=== PATIENT | female | born 1950 | race Caucasian/White ===

== ENCOUNTER → 2017-11-07 | Outpatient (CLI) | payer MEDICARE, OTHER ==
[~2017-11-07] MED LIST: ALEN70TA2 PO; AML5T; AMLO10TA2 PO; ASCO-262 PO; CALC-823 PO; CHOL100048 PO; ENAL20TA PO; ENLP10T; FOSAMAX 35 MG; LEVO500T2 PO; MULT-974 PO; OMEP20TA33 PO; PRD10T PO; VITA-240 PO
--- NOTE | 2017-11-07 15:14 | Diagnostic Imaging Report ---
INDICATION: Fall. Back pain. COMPARISON: None FINDINGS: Frontal and lateral views of the lumbar spine were obtained. Alignment and vertebral heights are maintained. There is no fracture or destructive process. Mild multilevel degenerative disease is noted in the lumbar spine. Limited views of the abdomen demonstrate nonobstructive bowel gas pattern. There is calcified aortic and arterial atherosclerosis. IMPRESSION: 1. No acute fracture or dislocation of the lumbar spine. 2. Mild multilevel degenerative changes. Dictated by: Dictated on workstation # [id number]
== END ==
LOC: RAD 13:51
PROVIDERS: ATTEND Nurse Practitioner Family
DX: M47.816 Spondylosis without myelopathy or radiculopathy, lumbar region (principal); W19.XXXA Unspecified fall, initial encounter
CPT/HCPCS: 72100

== ENCOUNTER 2018-09-10 12:49 | Observation (INO) | payer MEDICARE, OTHER ==
[~2018-09-10] VITALS: Ht 152.4 cm; Wt 73.5 kg
[~2018-09-10 12:49] MED LIST changes: -AMLO10TA2 PO; +AMLO10TA6 PO
--- OUTSIDE RECORDS SUMMARY | 2018-09-10 13:56 | XMS REPORT | Continuity of Care Document ---
Author Author [facility] Organization [facility] Address Unknown Phone Unavailable Allergies Active Description Code Type Severity Reaction Onset Reported/Identified Relationship to Patient Clinical Status Yes codeine [id number] Drug Allergy Unknown HAS TAKEN LORTA 08/16/2008 Medications There is no data. Problems Date Dx Coded Attending Type Code Diagnosis Diagnosed By 07/14/2012 Ot 174.9 07/14/2012 Ot 733.00 07/14/2012 Ot V58.69 11/04/2012 Ot 174.9 11/04/2012 Ot 427.9 11/04/2012 Ot 733.00 11/04/2012 Ot V58.69 11/04/2013 RJ RIOS N Ot 174.9 11/04/2013 RJ RIOS Ot 427.9 11/04/2013 RJ RIOS N Ot 733.00 11/04/2013 RJ RIOS Ot V58.69 08/17/2015 Ot 724.79 08/17/2015 Ot 305.1 08/17/2015 Ot 401.9 08/17/2015 Ot 733.00 08/17/2015 Ot V10.3 08/17/2015 Ot V58.69 08/17/2015 Ot V67.1 08/17/2015 Ot V67.2 08/17/2015 Ot 174.9 08/17/2015 Ot 733.00 08/17/2015 Ot V49.81 08/17/2015 Ot V82.81 08/17/2015 Ot 786.50 08/17/2015 Ot 174.9 08/17/2015 Ot 786.2 08/17/2015 Ot 786.50 08/17/2015 ABDULKADIR DODD MD Ot 724.1 08/17/2015 ABDULKADIR DODD MD Ot 715.34 08/17/2015 EVER JASSO UNIVERSITY TUTOR Ot 733.00 08/17/2015 EVER JASSO UNIVERSITY TUTOR Ot V10.3 08/17/2015 EVER JASSO UNIVERSITY TUTOR Ot V58.69 08/17/2015 EVER JASSO UNIVERSITY TUTOR Ot V67.1 08/17/2015 EVER JASSO UNIVERSITY TUTOR Ot V67.2 09/18/2015 Ot 724.79 09/18/2015 Ot 305.1 09/18/2015 Ot 401.9 09/18/2015 Ot 733.00 09/18/2015 Ot V10.3 09/18/2015 Ot V58.69 09/18/2015 Ot V67.1 09/18/2015 Ot V67.2 09/18/2015 Ot 174.9 09/18/2015 Ot 733.00 09/18/2015 Ot V49.81 09/18/2015 Ot V82.81 09/18/2015 Ot 786.50 09/18/2015 Ot 174.9 09/18/2015 Ot 786.2 09/18/2015 Ot 786.50 09/18/2015 OSMAN BRADEN, ABDULKADIR R Ot 724.1 09/18/2015 ABDULKADIR DODD MD R Ot 715.34 09/18/2015 EVER JASSO UNIVERSITY TUTOR Ot 733.00 09/18/2015 JASSOEVER Yoo UNIVERSITY TUTOR Ot V10.3 09/18/2015 JASSO EVER Yoo UNIVERSITY TUTOR Ot V58.69 09/18/2015 EVER JASSO UNIVERSITY TUTOR Ot V67.1 09/18/2015 JASSOEVER Yoo UNIVERSITY TUTOR Ot V67.2 09/19/2015 Ot 724.79 09/19/2015 Ot 305.1 09/19/2015 Ot 401.9 09/19/2015 Ot 733.00 09/19/2015 Ot V10.3 09/19/2015 Ot V58.69 09/19/2015 Ot V67.1 09/19/2015 Ot V67.2 09/19/2015 Ot 174.9 09/19/2015 Ot 733.00 09/19/2015 Ot V49.81 09/19/2015 Ot V82.81 09/19/2015 Ot 786.50 09/19/2015 Ot 174.9 09/19/2015 Ot 786.2 09/19/2015 Ot 786.50 09/19/2015 OSMAN BRADEN, ABDULKADIR R Ot 724.1 09/19/2015 OSMAN BRADEN, ABDULKADIR R Ot 715.34 09/19/2015 EVER JASSO UNIVERSITY TUTOR Ot 733.00 09/19/2015 EVER JASSO UNIVERSITY TUTOR Ot V10.3 09/19/2015 EVER JASSO UNIVERSITY TUTOR Ot V58.69 09/19/2015 EVER JASSO UNIVERSITY TUTOR Ot V67.1 09/19/2015 EVER JASSO UNIVERSITY TUTOR Ot V67.2 09/19/2015 GABRIEL, BOBAN N Ot M81.0 09/19/2015 GABRIEL, BOBAN N Ot Z08 09/19/2015 GABRIEL, BOBAN N Ot Z79.899 09/19/2015 GABRIEL, BOBAN N Ot Z85.038 09/19/2015 GABRIEL, BOBAN N Ot Z92.21 09/19/2015 GABRIEL, BOBAN N Ot Z92.3 09/19/2015 GABRIEL, BOBAN N Ot M81.0 09/19/2015 GABRIEL, BOBAN N Ot Z08 09/19/2015 GABRIEL, BOBAN N Ot Z79.899 09/19/2015 GABRIEL, BOBAN N Ot Z85.038 09/19/2015 GABRIEL, BOBAN N Ot Z92.21 09/19/2015 GABRIEL, BOBAN N Ot Z92.3 09/21/2015 OSMAN BRADEN, ABDULKADIR R Ot E83.42 09/21/2015 OSMAN BRADEN, ABDULKADIR R Ot E87.6 09/21/2015 OSMAN BRADEN, ABDULKADIR R Ot F17.210 09/21/2015 OSMAN BRADEN, ABDULKADIR R Ot I10 09/21/2015 OSMAN BRADEN, ABDULKADIR R Ot J18.9 09/21/2015 OSMAN BRADEN, ABDULKADIR R Ot J44.9 09/21/2015 OSMAN BRADEN, ABDULKADIR R Ot J96.00 09/21/2015 OSMAN BRADEN, ABDULKADIR R Ot Z85.3 09/21/2015 OSAMN BRADEN, ABDULKADIR R Ot Z92.21 09/21/2015 OSMAN BRADEN, ABDULKADIR R Ot Z92.3 09/21/2015 OSMAN BRADEN, ABDULKADIR R Ot E83.42 09/21/2015 OSMAN BRADEN, ABDULKADIR R Ot E87.6 09/21/2015 OSMAN BRADEN, ABDULKADIR R Ot F17.210 09/21/2015 OSMAN BRADEN, ABDULKADIR R Ot I10 09/21/2015 OSMAN BRADEN, ABDULKADIR R Ot J18.9 09/21/2015 OSMAN BRADEN, ABDULKADIR R Ot J44.9 09/21/2015 OSMAN BRADEN, ABDULKADIR R Ot J96.00 09/21/2015 OSMAN BRADEN, ABDULKADIR R Ot Z85.3 09/21/2015 OSMAN BRADEN, ABDULKADIR R Ot Z92.21 09/21/2015 OSMAN BRADEN, ABDULKADIR R Ot Z92.3 09/22/2015 OSMAN BRADEN, ABDULKADIR R Ot E83.42 09/22/2015 OSMAN BRADEN, ABDULKADIR R Ot E87.6 09/22/2015 OSMAN BRADEN, ABDULKADIR R Ot F17.210 09/22/2015 OSMAN BRADEN, ABDULKADIR R Ot I10 09/22/2015 OSMAN BRADEN, ABDULKADIR R Ot J18.9 09/22/2015 OSMAN BRADEN, ABDULKADIR R Ot J44.9 09/22/2015 OSMAN BRADEN, ABDULKADIR R Ot J96.00 09/22/2015 OSMAN BRADEN, ABDULKADIR R Ot Z85.3 09/22/2015 OSMAN BRADEN, ABDULKADIR R Ot Z92.21 09/22/2015 OSMAN BRADEN, ABDULKADIR R Ot Z92.3 09/23/2015 OSAMN BRADEN, ABDULKADIR R Ot E83.42 09/23/2015 SOMAN BRADEN, ABDULKADIR R Ot E87.6 09/23/2015 OSMAN BRADEN, ABDULKADIR R Ot F17.210 09/23/2015 OSMAN BRADEN, ABDULKADIR R Ot I10 09/23/2015 OSMAN BRADEN, ABDULKADIR R Ot J18.9 09/23/2015 OSMAN BRADEN, ABDULKADIR R Ot J44.9 09/23/2015 OSMAN BRADEN, ABDULKADIR R Ot J96.00 09/23/2015 OSMAN BRADEN, ABDULKADIR R Ot Z85.3 09/23/2015 OSMAN BRADEN, ABDULKADIR R Ot Z92.21 09/23/2015 OSMAN BRADEN, ABDULKADIR R Ot Z92.3 09/24/2015 OSMAN BRADEN, ABDULKADIR R Ot E83.42 09/24/2015 OSMAN BRADEN, ABDULKADIR R Ot E87.6 09/24/2015 OSMAN BRADEN, ABDULKADIR R Ot F17.210 09/24/2015 OSMAN BRADEN, ABDULKADIR R Ot I10 09/24/2015 OSMAN BRADEN, ABDULKADIR R Ot J18.9 09/24/2015 OSMAN BRADEN, ABDULKADIR R Ot J44.9 09/24/2015 OSMAN BRADEN, ABDULKADIR R Ot J96.00 09/24/2015 OSMAN BRADEN, ABDULKADIR R Ot Z85.3 09/24/2015 OSMAN BRADEN, ABDULKADIR R Ot Z92.21 09/24/2015 OSMAN BRADEN, ABDULKADIR R Ot Z92.3 09/25/2015 OSMAN BRADEN, ABDULKADIR R Ot E83.42 09/25/2015 OSMAN BRADEN, ABDULKADIR R Ot E87.6 09/25/2015 OSMAN BRADEN, ABDULKADIR R Ot F17.210 09/25/2015 OSMAN BRADEN, ABDULKADIR R Ot I10 09/25/2015 OSMAN BRADEN, ABDULKADIR R Ot J18.9 09/25/2015 OSMAN BRADEN, ABDULKADIR R Ot J44.9 09/25/2015 OSMAN BRADEN, ABDULKADIR R Ot J96.00 09/25/2015 OSMAN BRADEN, ABDULKADIR R Ot Z85.3 09/25/2015 OSMAN BRADEN, ABDULKADIR R Ot Z92.21 09/25/2015 OSMAN BRADEN, ABDULKADIR R Ot Z92.3 09/26/2015 OSMAN BRADEN, ABDULKADIR R Ot E83.42 09/26/2015 OSMAN BRADEN, ABDULKADIR R Ot E87.6 09/26/2015 OSMAN BRADEN, ABDULKADIR R Ot F17.210 09/26/2015 OSMAN BRADEN, ABDULKADIR R Ot I10 09/26/2015 OSMAN BRADEN, ABDULKADIR R Ot J18.9 09/26/2015 OSMAN BRADEN, ABDULKADIR R Ot J44.9 09/26/2015 OSMAN BRADEN, ABDULKADIR R Ot J96.00 09/26/2015 OSMAN BRADEN, ABDULKADIR R Ot Z85.3 09/26/2015 OSMAN BRADEN, ABDULKADIR R Ot Z92.21 09/26/2015 OSMAN BRADEN, ABDULKADIR R Ot Z92.3 09/27/2015 OSMAN BRADEN, ABDULKADIR R Ot E83.42 09/27/2015 OSMAN BRADEN, ABDULKADIR R Ot E87.6 09/27/2015 OSMAN BRADEN, ABDULKADIR R Ot F17.210 09/27/2015 OSMAN BRADEN, ABDULKADIR R Ot I10 09/27/2015 OSMAN BRADEN, ABDULKADIR R Ot J18.9 09/27/2015 OSMAN BRADEN, ABDULKADIR R Ot J44.9 09/27/2015 OSMAN BRADEN, ABDULKADIR R Ot J96.00 09/27/2015 OSMAN BRADEN, ABDULKADIR R Ot Z85.3 09/27/2015 OSMAN BRADEN, ABDULKADIR R Ot Z92.21 09/27/2015 OSMAN BRADEN, ABDULKADIR R Ot Z92.3 09/27/2015 OSMAN BRADEN, ABDULKADIR R Ot E83.42 09/27/2015 OSMAN BRADEN, ABDULKADIR R Ot E87.6 09/27/2015 OSMAN BRADEN, ABDULKADIR R Ot F17.210 09/27/2015 OSMAN BRADEN, ABDULKADIR R Ot I10 09/27/2015 OSMAN BRADEN, ABDULKADIR R Ot J18.9 09/27/2015 OSMAN BRADEN, ABDULKADIR R Ot J44.1 09/27/2015 OSMAN BRADEN, ABDULKADIR R Ot J44.9 09/27/2015 OSMAN BRADEN, ABDULKADIR R Ot J96.00 09/27/2015 OSMAN BRADEN, ABDULKADIR R Ot K21.9 09/27/2015 OSMAN BRADEN, ABDULKADIR R Ot Z85.3 09/27/2015 OSMAN BRADEN, ABDULKADIR R Ot Z92.21 09/27/2015 OSMAN BRADEN, ABDULKADIR R Ot Z92.3 10/24/2015 Ot 724.79 10/24/2015 Ot 305.1 10/24/2015 Ot 401.9 10/24/2015 Ot 733.00 10/24/2015 Ot V10.3 10/24/2015 Ot V58.69 10/24/2015 Ot V67.1 10/24/2015 Ot V67.2 10/24/2015 Ot 174.9 10/24/2015 Ot 733.00 10/24/2015 Ot V49.81 10/24/2015 Ot V82.81 10/24/2015 Ot 786.50 10/24/2015 Ot 174.9 10/24/2015 Ot 786.2 10/24/2015 Ot 786.50 10/24/2015 OSMAN BRADEN, ABDULKADIR R Ot 724.1 10/24/2015 OSMAN BRADEN, ABDULKADIR R Ot 715.34 10/24/2015 JASSO, EVER S UNIVERSITY TUTOR Ot 733.00 10/24/2015 ROMERO EVER S UNIVERSITY TUTOR Ot V10.3 10/24/2015 ROMERO GENEVAAH S UNIVERSITY TUTOR Ot V58.69 10/24/2015 JASSO GENEVAAH S UNIVERSITY TUTOR Ot V67.1 10/24/2015 JASSO, GENEVAAH S UNIVERSITY TUTOR Ot V67.2 10/24/2015 JULIO CESAR RIOSAN N Ot M81.0 10/24/2015 GABRIEL, BOBAN N Ot Z08 10/24/2015 GABRIEL, BOBAN N Ot Z79.899 10/24/2015 GABRIEL, BOBAN N Ot Z85.038 10/24/2015 GABRIEL, BOBAN N Ot Z92.21 10/24/2015 GABRIEL, BOBAN N Ot Z92.3 11/09/2015 TAMMIE VINCENT JR. JAVA DEVELOPER Ot R05 11/09/2015 TAMMIE VINCENT E JR. JAVA DEVELOPER Ot R06.00 11/09/2015 TAMMIE VINCENT JR. JAVA DEVELOPER Ot R09.02 11/09/2015 TAMMIE VINCENT E JR. JAVA DEVELOPER Ot R05 11/09/2015 TAMMIE VINCENT E JR. JAVA DEVELOPER Ot R06.00 11/09/2015 TAMMIE VINCENT JR. JAVA DEVELOPER Ot R09.02 11/09/2015 OSMAN BRADEN, ABDULKADIR R Ot J18.9 11/09/2015 OSMAN BRADEN, ABDULKADIR R Ot R09.89 12/26/2015 GABRIEL, JULIO CESARAN N Ot M81.0 12/26/2015 GABRIEL, BOBAN N Ot Z08 12/26/2015 GABRIEL, BOBAN N Ot Z79.899 12/26/2015 RJ RIOS N Ot Z85.038 12/26/2015 RJ RIOS N Ot Z92.21 12/26/2015 RJ RIOS N Ot Z92.3 12/26/2015 OSMAN BRADEN, ABDULKADIR R Ot J18.9 12/26/2015 OSMAN BRADEN, ABDULKADIR R Ot R09.89 12/26/2015 CARLTON TAMMIE E JR. JAVA DEVELOPER Ot R05 12/26/2015 CARLTON TAMMIE E JR. JAVA DEVELOPER Ot R06.00 12/26/2015 CARLTON, TAMMIE E JR. JAVA DEVELOPER Ot R09.02 12/26/2015 CARLTON TAMMIE E JR. JAVA DEVELOPER Ot R05 12/26/2015 CARLTON TAMMIE E JR. JAVA DEVELOPER Ot R06.00 12/26/2015 CARLTON TAMMIE E JR. JAVA DEVELOPER Ot R09.02 02/05/2016 CARLTON TAMMIE E JR. JAVA DEVELOPER Ot R05 02/05/2016 CARLTON TAMMIE E JR. JAVA DEVELOPER Ot R06.00 02/05/2016 CARLTON TAMMIE E JR. JAVA DEVELOPER Ot R09.02 02/07/2016 CARLTON TAMMIE E JR. JAVA DEVELOPER Ot R05 02/07/2016 CARLTON TAMMIE E JR. JAVA DEVELOPER Ot R06.00 02/07/2016 TAMMIE VINCENT JR. JAVA DEVELOPER Ot R09.02 11/08/2017 GILLIAN HOBSON JR. JAVA DEVELOPER Ot M47.816 SPONDYLOSIS W/O MYELOPATHY OR RADICULOPA 11/08/2017 GILLIAN HOBSON R JR. JAVA DEVELOPER Ot W19.XXXA UNSPECIFIED FALL, INITIAL ENCOUNTER 12/02/2017 GILLIAN HOBSON JR. JAVA DEVELOPER Ot M47.816 SPONDYLOSIS W/O MYELOPATHY OR RADICULOPA 12/02/2017 GILLIAN HOBSON JR. JAVA DEVELOPER Ot W19.XXXA UNSPECIFIED FALL, INITIAL ENCOUNTER Procedures There is no data. Results There is no data. Encounters ACCT No. Visit Date/Time Discharge Status Pt. Type Provider Facility Loc./Unit Complaint [id number] 11/07/2017 13:51:00 11/07/2017 23:59:59 CLS Outpatient GILLIAN HOBSON APRN [facility] RAD M54.5 [id number] 11/18/2015 09:01:00 11/18/2015 23:59:59 CLS Outpatient CARLTON, TAMMIE E JR. JAVA DEVELOPER [facility] RAD [id number] 11/09/2015 09:35:00 11/09/2015 23:59:59 CLS Outpatient TAMMIE VINCENT JR. JAVA DEVELOPER [facility] RT [id number] 11/07/2015 13:15:00 11/07/2015 23:59:59 CLS Outpatient TAMMIE VINCENT JR. JAVA DEVELOPER [facility] PULM [id number] 10/24/2015 11:34:00 10/24/2015 23:59:59 CLS Outpatient ABDULKADIR DODD MD [facility] RAD [id number] 09/18/2015 19:16:00 09/27/2015 10:00:00 DIS Inpatient ABDULKADIR DODD MD [facility] 4TH [id number] 08/18/2015 12:52:00 08/18/2015 23:59:59 CLS Outpatient RJ RIOS [facility] ONC [id number] 08/12/2014 14:49:00 08/12/2014 23:59:59 CLS Outpatient EVER JASSO UNIVERSITY TUTOR [facility] ONC [id number] 05/13/2014 14:39:00 05/13/2014 23:59:59 CLS Outpatient ABDULKADIR DODD MD [facility] RAD [id number] 08/06/2013 13:52:00 11/04/2013 00:01:00 DIS Outpatient RJ RIOS [facility] ONC [id number] 03/09/2013 15:14:00 03/09/2013 23:59:59 CLS Outpatient ABDULKADIR DODD MD [facility] RAD [id number] 11/27/2012 12:12:00 Document Registration [id number] 08/15/2012 10:53:00 Document Registration [id number] 08/14/2012 09:26:00 Document Registration [id number] 04/15/2012 09:32:00 Document Registration [id number] 03/24/2012 11:57:00 Document Registration [id number] 07/24/2011 10:16:00 Document Registration [id number] 07/19/2011 09:06:00 Document Registration [id number] 04/11/2011 11:46:00 Document Registration [id number] 01/31/2018 08:49:00 01/31/2018 23:59:00 DIS Outpatient Jay Dodd [id number] 01/09/2017 09:49:00 01/09/2017 23:59:00 DIS Outpatient Jay Dodd
--- NOTE | 2018-09-10 14:05 | Diagnostic Imaging Report ---
PROCEDURE: US left lower extremity venous. TECHNIQUE: Multiple real-time grayscale images were obtained over the left lower extremity in various projections. Additional duplex Doppler and color Doppler images were also obtained. INDICATION: Left lower extremity swelling and redness. The left common femoral vein in the upper portion of the superficial femoral vein are patent and show normal compressibility. There appears to be partially occlusive thrombus in the mid femoral vein with occlusive thrombus in the lower femoral vein and popliteal vein. There appears to be a thrombus in the posterior tibial vein and the calf. No fluid collections are seen. IMPRESSION: Left lower extremity DVT. Dictated by: Dictated on workstation # [id number]
[2018-09-10 14:23] VITALS: BP 151/79
[2018-09-10] MEDS ORDERED: ALBU18HF2 INH (15:08)
[2018-09-10] MEDS ORDERED: FURO40TA4 PO (15:08)
[2018-09-10] MEDS ORDERED: MONT10TA24 PO (15:08)
[2018-09-10] MEDS ORDERED: TRAM1TAB7 PO (15:20)
[2018-09-10 15:28] LABS: BASOPHILS # (AUTO) 0.1 10^3/uL (0.0-0.1); BASOPHILS % (AUTO) 1 % (0-10); EOSINOPHILS # (AUTO) 0.4 10^3/uL (0.0-0.3); EOSINOPHILS % (AUTO) 3 % (0-10); HEMATOCRIT 41 % (35-52); HEMOGLOBIN 13.3 G/DL (11.5-16.0); LYMPHOCYTES # (AUTO) 2.2 X 10^3 (1.0-4.0); LYMPHOCYTES % (AUTO) 17 % (12-44); MEAN CORPUSCULAR HEMOGLOBIN 30 PG (25-34); MEAN CORPUSCULAR HGB CONC 33 G/DL (32-36); MEAN CORPUSCULAR VOLUME 91 FL (80-99); MEAN PLATELET VOLUME 9.3 FL (7.4-10.4); MONOCYTES # (AUTO) 0.9 X 10^3 (0.0-1.0); MONOCYTES % (AUTO) 7 % (0-12); NEUTROPHILS # (AUTO) 9.4 X 10^3 (1.8-7.8); NEUTROPHILS % (AUTO) 73 % (42-75); PLATELET COUNT 310 10^3/uL (130-400); RED BLOOD COUNT 4.45 10^6/uL (4.35-5.85); RED CELL DISTRIBUTION WIDTH 13.1 % (10.0-14.5); WHITE BLOOD COUNT 12.9 10^3/uL (4.3-11.0)
[2018-09-10 15:40] VITALS: BP 144/64
--- NOTE | 2018-09-10 15:40 | History & Physical-Hospitalist ---
History of Present Illness HPI/Chief Complaint Pt is a 67yoCF with a PMH of COPD, HTN, and remote history of breast cancer who was direct admitted after being found to have occlusive proximal DVTs. She reports her symptoms started on 09/07 after reaching to change a clock and she thought that she pulled something in her leg. Her pain continued to worsen and after walking to the polls to vote yesterday it began throbbing significantly so she walked in to be seen by Dr Dodd where an usg was ordered. She was found to have a partially occlusive thrombus in the mid femoral vein with occlusive thrombus in the lower femoral vein and popliteal vein. Due to extensive nature of her DVT she was admitted for observation for initiating of anticoagulation. She denies any recent surgery, active cancer, travel, hormone use. She is regularly ambulatory. Source: patient, family Date Seen 09/10/18 Time Seen by a Provider: 15:33 Attending Physician Paris Molina MD PCP Emil Dodd MD Referring Physician Date of Admission Sep 10, 2018 at 13:52 Home Medications & Allergies Home Medications Reviewed patient Home Medication Reconciliation performed by pharmacy medication reconciliations data acquisition technician and/or nursing. Patients Allergies have been reviewed. Allergies Allergies Coded Allergies codeine (Verified Allergy, Unknown, HAS TAKEN LORTAB AT HOME, 08/16/08) Past Wubhhob-Qayrug-Eflsuo Hx Past Med/Social Hx: Reviewed Nursing Past Med/Soc Hx Patient Social History Alcohol Use: Denies Use Recreational Drug Use: No Smoking Status: Current Someday Smoker Physical Abuse Screen: No Sexual Abuse: No Recent Foreign Travel: No Contact w/other who traveled: No Recent Hopitalizations: Yes Recent Infectious Disease Expo: No Immunizations Up To Date Date of Pneumonia Vaccine: Sep 18, 2013 Date of Influenza Vaccine: Jul 11, 2018 Seasonal Allergies Seasonal Allergies: Yes Past Medical History Surgeries: Breast (lumpectomy), Gallbladder, Hysterectomy Respiratory: COPD (on 3lpm continuously) Cardiac: Hypertension Reproductive: Yes (HYSTERECTOMY-ENDOMETRIOSIS) Female Reproductive Disorders: Endometriosis Hysterectomy Gastrointestinal: Gall Bladder Disease Musculoskeletal: Osteoporosis, Arthritis, Fractures Cancer: Breast What Type of Treatment Did You: Radiation, Surgical Intervention History of Blood Disorders: No Family History Reviewed Nursing Family Hx Alzheimer's disease G8 SISTER G8 SISTER Completed stroke 19 MOTHER Myocardial infarction 19 FATHER DVT/PE Review of Systems Constitutional: No chills, No fever EENTM: No blurred vision, No double vision, No nose congestion, No throat pain Respiratory: No cough, No dyspnea on exertion, No short of breath Cardiovascular: No chest pain, No edema, No palpitations Gastrointestinal: No abdominal pain, No constipation, No diarrhea, No nausea, No vomiting Genitourinary: No dysuria, No frequency Musculoskeletal: see HPI, muscle pain Skin: No lesions, No rash Psychiatric/Neurological: Denies Headache, Denies Numbness, Denies Tingling Physical Exam Physical Exam Vital Signs Vital Signs - First Documented 09/10/18 09/10/18 09/10/18 14:15 14:23 20:10 Temp 99.1 Pulse 100 Resp 20 B/P (MAP) 151/79 (103) Pulse Ox 97 O2 Delivery Nasal Cannula O2 Flow Rate 2.00 FiO2 28 Capillary Refill : Height, Weight, BMI Height: 5'1" Weight: 159lbs. 10.0oz. 72.164242li; BMI Method:Stated General Appearance: No Apparent Distress, WD/WN HEENT: PERRL/EOMI, Moist Mucous Membranes Neck: Non Tender, Supple Respiratory: Lungs Clear, No Respiratory Distress Cardiovascular: Regular Rate, Rhythm, No Murmur Gastrointestinal: Normal Bowel Sounds, Non Tender, Soft Extremity: Normal Capillary Refill, Non Tender, Other (nonpitting edema of the LLE, 2+ peripheral pulses, normal color, sensation intact) Neurologic/Psychiatric: Alert, Oriented x3, Normal Mood/Affect Skin: Normal Color, Warm/Dry Results Results/Procedures Labs Laboratory Tests 09/11/18 07:10 Patient resulted labs reviewed. Imaging: Reviewed Imaging Report Assessment/Plan Admission Diagnosis LLE DVT Admission Status: Observation Diagnosis/Problems Diagnosis/Problems (1) DVT (deep venous thrombosis) Assessment & Plan: Occlusive DVT of femoral and popliteal vein No known contraindications to anticoagulation Will start on Xarelto Discussed with Dr Santamaria who will see in consultation Qualifiers: DVT location: lower extremity Affected thrombotic vein of extremity: femoral Chronicity: acute Laterality: left Qualified Codes: I82.412 - Acute embolism and thrombosis of left femoral vein (2) Acute deep vein thrombosis (DVT) of left lower extremity Assessment & Plan: Anticoagulation as above Qualifiers: Affected thrombotic vein of extremity: popliteal Qualified Codes: I82.432 - Acute embolism and thrombosis of left popliteal vein (3) COPD (chronic obstructive pulmonary disease) Status: Chronic Assessment & Plan: No signs of acute exacerbation Continue oxygen Follows with Dr Kahn who will see in consult Qualifiers: COPD type: unspecified COPD Qualified Codes: J44.9 - Chronic obstructive pulmonary disease, unspecified PARIS MOLINA MD Sep 10, 2018 15:40
[2018-09-10] MEDS ORDERED: PATIENT MAY USE OWN MEDS, ALL MC SCH (15:45)
[2018-09-10] MEDS ORDERED: NON-FORMULARY MEDICATION 1 EA EA (Tramadol HCl/Acetaminophen (Tramadol-Acetaminophn 37.5-3 PO PRN (15:45)
[2018-09-10] MEDS ORDERED: FUROSEMIDE 40 MG (LASIX) TAB PO SCH (15:45)
[2018-09-10 15:49] LABS: ALANINE AMINOTRANSFERASE 20 U/L (0-55); ALBUMIN 4.3 GM/DL (3.2-4.5); ALKALINE PHOSPHATASE 82 U/L (40-136); BILIRUBIN,TOTAL 0.5 MG/DL (0.1-1.0); BUN/CREATININE RATIO 26; CALCIUM 10.4 MG/DL (8.5-10.1); CARBON DIOXIDE 29 MMOL/L (21-32); CHLORIDE 101 MMOL/L (98-107); CREATININE SERUM 0.74 MG/DL (0.60-1.30); GFR ESTIMATED > 60; GLUCOSE 119 MG/DL (70-105); POTASSIUM 4.4 MMOL/L (3.6-5.0); SODIUM 141 MMOL/L (135-145)
[2018-09-10] MEDS ORDERED: ACETAMINOPHEN 325 MG TABLET PO PRN (16:00)
[2018-09-10] MEDS: RIVAROXABAN 15 MG TABLET (XARELTO) PO SCH (16:14)
[2018-09-10 19:13] VITALS: BP 127/62
[2018-09-10 20:10] VITALS: BP 144/64
[2018-09-10] MEDS ORDERED: RT-ALBUTEROL SULF 2.5 MG/3 ML PRE-MIX VIAL INH PRN (20:30)
[2018-09-10] MEDS ORDERED: MONTELUKAST 10 MG (SINGULAIR) TAB PO SCH ×2 (21:00)
[2018-09-10 23:52] VITALS: BP 121/69
[2018-09-11 04:00] VITALS: BP 124/59
[2018-09-11] MEDS: RIVAROXABAN 15 MG TABLET (XARELTO) PO SCH ×2 (06:20→16:56)
[2018-09-11] MEDS: RT-ALBUTEROL SULF 2.5 MG/3 ML PRE-MIX VIAL INH SCH ×2 (06:51→10:55)
--- NOTE | 2018-09-11 07:15 | Pulmonary Consultation ---
History of Present Illness History of Present Illness Date of Consultation 09/11/18 07:09 Time Seen by Provider: 07:10 Date of Admission History of Present Illness 69yo with hx of COPD, breast cancer admitted after dopplers found an oclusive proximal LE DVT. Symptoms started on 09/07. Pt was admitted to [facility] and placed on Xeralto. PT has strong family hx of DVTs. Denies surgery, current cancer, travel , hormone replacement. I am consulted for pulmonary management. Allergies and Home Medications Allergies Coded Allergies: codeine (Verified Allergy, Unknown, HAS TAKEN LORTAB AT HOME, 08/16/08) Home Medications Albuterol Sulfate 18 Gm Hfa.aer.ad, 2 PUFF INH Q4H PRN for SHORTNESS OF BREATH, (Reported) Amlodipine Besylate 10 Mg Tablet, 10 MG PO DAILY, (Reported) Ascorbate Calcium 500 Mg Tablet, 500 MG PO DAILY, (Reported) Calcium Carbonate 500 Mg Tablet, 500 MG PO BID, (Reported) Cholecalciferol (Vitamin D3) 1,000 Unit Capsule, 1,000 UNIT PO DAILY, (Reported) Enalapril Maleate 20 Mg Tablet, 20 MG PO DAILY, (Reported) Furosemide 40 Mg Tablet, 40 MG PO Q48H, (Reported) Montelukast Sodium 10 Mg Tablet, 10 MG PO HS, (Reported) Multivitamin 1 Each Tablet, 1 TAB PO DAILY, (Reported) Omeprazole Magnesium 20 Mg Tablet.dr, 20 MG PO DAILY, (Reported) Tramadol HCl/Acetaminophen 1 Each Tablet, 1 TAB PO TID PRN for PAIN-MODERATE, ( Reported) Vitamin E (Dl,Tocopheryl Acet) 400 Unit Capsule, 400 UNIT PO DAILY, (Reported) Past Yhfxyxn-Eqxijb-Zaozuj Hx Past Med/Social Hx: Reviewed Nursing Past Med/Soc Hx Patient Social History Alcohol Use: Denies Use Recreational Drug Use: No Smoking Status: Current Someday Smoker Recent Foreign Travel: No Contact w/Someone Who Travel: No Recent Infectious Disease Expo: No Recent Hopitalizations: Yes Immunizations Up To Date Date of Pneumonia Vaccine: Sep 18, 2013 Date of Influenza Vaccine: Jul 11, 2018 Seasonal Allergies Seasonal Allergies: Yes Past Medical History Surgeries: Yes (LEFT BREAST LUMPECTOMY AND AXILLARY LYMPH NODE REMOVAL 2004) Breast (lumpectomy), Gallbladder, Hysterectomy Respiratory: Yes Pneumonia Cardiac: Yes Hypertension Neurological: No Reproductive Disorders: Yes (HYSTERECTOMY-ENDOMETRIOSIS) Female Reproductive Disorders: Endometriosis 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 0.0oz. 73.557745hr; 31.6 BMI Method:Stated Exam Exam Vital Signs Date Time Temp Pulse Resp B/P (MAP) Pulse Ox O2 Delivery O2 Flow Rate FiO2 09/11/18 06:51 95 Nasal Cannula 2.00 09/11/18 04:00 98.6 77 16 124/59 (80) 94 Nasal Cannula 2.00 09/10/18 23:52 98.9 80 20 121/69 (86) 95 Nasal Cannula 2.00 09/10/18 20:25 94 Nasal Cannula 2.00 09/10/18 20:10 68 94 28 09/10/18 20:09 94 Nasal Cannula 2.00 09/10/18 19:13 98.5 96 20 127/62 (83) 93 Nasal Cannula 2.00 09/10/18 15:40 98.4 96 20 144/64 (90) 97 Nasal Cannula 2.00 09/10/18 14:23 99.1 100 20 151/79 (103) 94 Nasal Cannula 2.00 09/10/18 14:15 97 Nasal Cannula 2.00 I & O 09/11/18 06:59 Intake Total 1200 ml Output Total 2025 ml Balance -825 ml Height & Weight Height: 5'0.00" Weight: 162lbs. 0.0oz. 73.997482yl; 31.6 BMI Method:Stated General Appearance: No Apparent Distress, WD/WN HEENT: PERRL/EOMI, Moist Mucous Membranes Neck: Non Tender, Supple Respiratory: Lungs Clear, No Respiratory Distress Cardiovascular: Regular Rate, Rhythm, No Murmur Extremity: Normal Capillary Refill, Non Tender, Other (nonpitting edema of the LLE, 2+ peripheral pulses, normal color, sensation intact) Neurologic/Psychiatric: Alert, Oriented x3, Normal Mood/Affect Skin: Normal Color, Warm/Dry Results Lab Laboratory Tests 09/10/18 15:20 Assessment/Plan Assessment/Plan DVT LLE with strong family hx -Continue Xarelto -Check CTA r/o PE -No recent PE HX of mild COPD ( MARGRET DINH DO Sep 11, 2018 07:15
[2018-09-11 07:27] LABS: BASOPHILS % (AUTO) 0 % (0-10); EOSINOPHILS # (AUTO) 0.4 10^3/uL (0.0-0.3); EOSINOPHILS % (AUTO) 3 % (0-10); HEMATOCRIT 39 % (35-52); HEMOGLOBIN 12.8 G/DL (11.5-16.0); LYMPHOCYTES # (AUTO) 2.3 X 10^3 (1.0-4.0); LYMPHOCYTES % (AUTO) 21 % (12-44); MEAN CORPUSCULAR HEMOGLOBIN 30 PG (25-34); MEAN CORPUSCULAR HGB CONC 33 G/DL (32-36); MEAN CORPUSCULAR VOLUME 91 FL (80-99); MEAN PLATELET VOLUME 9.3 FL (7.4-10.4); MONOCYTES # (AUTO) 0.9 X 10^3 (0.0-1.0); MONOCYTES % (AUTO) 8 % (0-12); NEUTROPHILS # (AUTO) 7.5 X 10^3 (1.8-7.8); NEUTROPHILS % (AUTO) 67 % (42-75); PLATELET COUNT 310 10^3/uL (130-400); RED BLOOD COUNT 4.31 10^6/uL (4.35-5.85); RED CELL DISTRIBUTION WIDTH 13.2 % (10.0-14.5); WHITE BLOOD COUNT 11.1 10^3/uL (4.3-11.0)
[2018-09-11 07:42] LABS: INR 1.8 (0.8-1.4); PROTHROMBIN TIME PATIENT 21.4 SEC (12.2-14.7)
[2018-09-11 07:49] LABS: BUN/CREATININE RATIO 26; CALCIUM 9.8 MG/DL (8.5-10.1); CARBON DIOXIDE 28 MMOL/L (21-32); CHLORIDE 99 MMOL/L (98-107); CREATININE SERUM 0.68 MG/DL (0.60-1.30); GFR ESTIMATED > 60; GLUCOSE 105 MG/DL (70-105); POTASSIUM 3.9 MMOL/L (3.6-5.0); SODIUM 140 MMOL/L (135-145)
[2018-09-11 08:00] VITALS: BP 128/72
[2018-09-11] MEDS ORDERED: NON-FORMULARY MEDICATION 1 EA EA (Amlodipine Besylate 10 MG) PO SCH (09:00)
[2018-09-11] MEDS ORDERED: ENALAPRIL 10 MG (VASOTEC) TAB PO SCH (09:00)
[2018-09-11] MEDS ORDERED: amLODIPine 10 MG (NORVASC) TAB PO SCH ×2 (09:00)
[2018-09-11] MEDS ORDERED: ENALAPRIL 20 MG TAB PO SCH (09:00)
[2018-09-11] MEDS ORDERED: NON-FORMULARY MEDICATION 1 EA EA (Enalapril Maleate 20 MG) PO SCH (09:00)
[2018-09-11 12:00] VITALS: BP 131/59
--- NOTE | 2018-09-11 12:08 | Diagnostic Imaging Report ---
PROCEDURE: US right lower extremity venous. TECHNIQUE: Multiple real-time grayscale images were obtained over the right lower extremity in various projections. Additional duplex Doppler and color Doppler images were also obtained. INDICATION: Calf pain. There are no prior studies available for comparison. There is generally good blood flow and compressibility at all levels of the deep venous system. There is no evidence for a deep venous embolus. IMPRESSION: There is no evidence for deep venous stenosis of the right lower extremity. Dictated by: Dictated on workstation # [id number]
--- NOTE | 2018-09-11 12:13 | Diagnostic Imaging Report ---
PROCEDURE: CT angiography of the chest with contrast. TECHNIQUE: Multiple contiguous axial images were obtained through the chest after uneventful bolus administration of intravenous contrast. 2D reconstructed CTA MIP acquisitions were also performed. INDICATION: Chest pain. FINDINGS: The previous CTA chest exam performed on 09/20/2015 failed to show any sign of a pulmonary embolus. On this exam, however, there does appear to be a small defect within the pulmonary arteries to the right lower lobe (image 86/137, 87/133). This does suggest a small pulmonary embolus. There is no other defect within the pulmonary arteries to indicate a pulmonary embolus. The aorta is not abnormally dilated, and there is no sign of a dissection. The heart size is within normal limits and stable when compared to the prior exam. Coronary artery calcifications are again noted. There are emphysematous changes involving both lungs. In the interval since the prior study, a band of increased density has developed in the right lung base. This is more likely due to chronic atelectasis/scar formation than to pneumonia, but the possibly that there is an element of pneumonia in this region should still be considered. There is no pleural effusion identified. There is no mediastinal or hilar adenopathy. The thyroid gland is generally unremarkable. There is a 1.4 cm rounded soft tissue density in the lateral aspect of the left breast. This was present on the prior exam and has not changed significantly. Consequently, I suspect it is not related to a malignant process. According to our records, however, the patient has not had a mammogram. If the patient has had a recent (one year) mammogram elsewhere, then no further imaging would be necessary. If the patient has not had a recent mammogram, then mammography would be recommended. The bone windows show no evidence for a fracture or for a destructive lesion. The sections through the upper abdomen fail to show any sign of an acute abnormality. As noted on the prior exam, there is fatty metamorphosis of the liver. IMPRESSION: 1. There is a small defect in the pulmonary arteries to the right lower lobe. This would be consistent with a pulmonary embolus. 2. The band of increased density in the right lung base may be due to chronic atelectasis/scar formation alone. The possibility that there is an element of mild pneumonia/atelectasis in this area should be considered. 3. There are emphysematous changes involving both lungs. 4. There is no obvious breast mass. 5. These results were discussed with Dr. Daniel Kahn. Dictated by: Dictated on workstation # [id number]
[2018-09-11] MEDS ORDERED: RIVA1TAB PO (13:18)
--- NOTE | 2018-09-11 13:31 | Discharge Inst-Simple/Standard ---
Discharge Inst-Standard Discharge Medications New, Converted or Re-Newed RX: Transmitted to Pharmacy Patient Instructions/Follow Up Plan of Care/Instructions/FU: Please continue to take your medications as written. Please follow up as scheduled with Dr Dodd and Dr Kahn. Activity as Tolerated: Yes Discharge Diet: No Restrictions Return to The Hospital For: Bleeding, SOB, increasing oxygen requirement, chest pain, if you feel you are getting worse. PARIS PACHECO MD Sep 11, 2018 1:31 pm
--- NOTE | 2018-09-11 13:48 | Discharge Summary-Hospitalist ---
Diagnosis/Chief Complaint Date of Admission Sep 10, 2018 at 1:52 pm Date of Discharge Discharge Date: Sep 11, 2018 Admission Diagnosis LLE DVT Discharge Diagnosis (1) DVT (deep venous thrombosis) Status: Acute Assessment & Plan: Occlusive DVT of femoral and popliteal vein No known contraindications to anticoagulation Cont Xarelto Discussed with Dr Santamaria who will see in consultation (2) Acute deep vein thrombosis (DVT) of left lower extremity Assessment & Plan: Anticoagulation as above (3) COPD (chronic obstructive pulmonary disease) Status: Chronic Assessment & Plan: No signs of acute exacerbation Continue oxygen Follows with Dr Kahn who will see in consult Discharge Summary Procedures/Consulations Dr Kahn- Pullu Santamaria Heme/Onc Discharge Physical Exam Allergies: Coded Allergies: codeine (Verified Allergy, Unknown, HAS TAKEN LORTAB AT HOME, 08/16/08) Vitals & I&Os Vital Signs Date Time Temp Pulse Resp B/P (MAP) Pulse Ox O2 Delivery O2 Flow Rate FiO2 09/11/18 17:15 09/11/18 16:12 97.8 93 16 91 Nasal Cannula 2.00 09/10/18 20:10 28 General Appearance: No Apparent Distress, WD/WN Respiratory: Lungs Clear, No Accessory Muscle Use, No Respiratory Distress Cardiovascular: Regular Rate, Rhythm, No Murmur Neurologic/Psychiatric: Alert, Oriented x3 Hospital Course Pt was admitted due to extensive proximal DVT in the left lower extremity. She was started on Xarelto for anticoagulation and tolerated it well. CTA chest was done which revealed a small pulmonary emboli as well. She was discharged home in stable condition to continue on anticoagulation. Fiven extensive nature of an unprovoked DVT and family history as well hematology was consulted to assistance with likely need for hypercoagulable work up at a later date. She is to follow up with the [facility] in [address] Dodd this week. I called and discussed her stay with Dr Dodd who will attempt to help her with affordability of Xarelto if needed. Labs (last 24 hrs) Patient resulted labs reviewed. Pending Labs Imaging: Reviewed Imaging Report Discussion & Recommendations Discharge Planning: >30 minutes discharge planning Discharge Home Medications: Active Scripts Active Xarelto Starter Pack (Rivaroxaban) 1 Each Tab.ds.pk 1 Each PO UD 15mg by mouth twice daily x 21 days then 20mg by mouth daily Reported Tramadol-Acetaminophn 37.5-325 (Tramadol HCl/Acetaminophen) 1 Each Tablet 1 Tab PO TID PRN Ventolin Hfa (Albuterol Sulfate) 18 Gm Hfa.aer.ad 2 Puff INH Q4H PRN Furosemide 40 Mg Tablet 40 Mg PO Q48H Montelukast Sodium 10 Mg Tablet 10 Mg PO HS Vitamin C (Ascorbate Calcium) 500 Mg Tablet 500 Mg PO DAILY Enalapril Maleate 20 Mg Tablet 20 Mg PO DAILY Amlodipine Besylate 10 Mg Tablet 10 Mg PO DAILY Calcium (Calcium Carbonate) 500 Mg Tablet 500 Mg PO BID Vitamin E (Vitamin E (Dl,Tocopheryl Acet)) 400 Unit Capsule 400 Unit PO DAILY Vitamin D (Cholecalciferol (Vitamin D3)) 1,000 Unit Capsule 1,000 Unit PO DAILY Prilosec Otc (Omeprazole Magnesium) 20 Mg Tablet.dr 20 Mg PO DAILY Multi-Vitamin Daily (Multivitamin) 1 Each Tablet 1 Tab PO DAILY Instructions to patient/family Please see electronic discharge instructions given to patient. Clinical Quality Measures DVT/VTE Risk/Contraindication: Risk Factor Score Per Nursin RFS Level Per Nursing on Admit: 4+=Very High Copy Copies To 1: ABDULKADIR DODD MD Problem Qualifiers (1) DVT (deep venous thrombosis): DVT location: lower extremity Affected thrombotic vein of extremity: femoral Chronicity: acute Laterality: left Qualified Codes: I82.412 - Acute embolism and thrombosis of left femoral vein (2) Acute deep vein thrombosis (DVT) of left lower extremity: Affected thrombotic vein of extremity: popliteal Qualified Codes: I82.432 - Acute embolism and thrombosis of left popliteal vein (3) COPD (chronic obstructive pulmonary disease): COPD type: unspecified COPD Qualified Codes: J44.9 - Chronic obstructive pulmonary disease, unspecified PARIS PACHECO MD Sep 11, 2018 13:48
[2018-09-11 16:12] VITALS: BP 108/67
--- NOTE | 2018-09-11 19:11 | CONSULTATION REPORT ---
DATE OF SERVICE: 09/11/2018 REFERRING PHYSICIAN: Shelli Molina MD. The patient is admitted to room #418. IMPRESSION: 1. A 67-year-old female admitted with left lower extremity deep venous thrombosis which was unprovoked. 2. Currently on anticoagulation with Xarelto. 3. 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 4. Status post radiation therapy to the left breast and hormonal therapy with anastrozole for 1 month, which was stopped by the patient. 5. Tobacco user. RECOMMENDATIONS: 1. Continue anticoagulation with Xarelto as you are doing. 2. I strongly advised the patient to quit tobacco use and offered help. The patient wants to quit by herself as she had quit in the past. 3. The patient has family history of thrombosis with her sister recently diagnosed with DVT and a niece who was diagnosed with CVA while in her teenage years. The patient may need a thrombophilia workup because of the family history and the unprovoked nature of her thrombosis. 4. Because of her history of breast cancer, also need to rule out recurrent disease as a cause for thrombosis. 5. I will see her at the Cancer Center in approximately 3 weeks and discuss about further workup. HISTORY OF PRESENT ILLNESS: The patient is a 67-year-old female who "tweaked" her left knee while trying to change her clock to daylight savings time on Saturday. Saturday morning, she had slight swelling around her left knee, but was normally active. Saturday, she went to vote and had to walk a long distance and her leg was more swollen and painful and she went to her primary physician who sent her to the emergency room for a sonogram, which showed extensive DVT involving the left lower extremity. She was admitted to the hospital for further management. Oncology consultation was obtained for further recommendations. PAST MEDICAL HISTORY: Significant for stage II high-grade infiltrating ductal carcinoma of the left breast and underwent lumpectomy with axillary node dissection followed by adjuvant chemotherapy per NSABP B-38 clinical trial with dose-dense AC regimen x4 followed by Taxol, gemcitabine regimen x4 cycles, completing all treatment in 2004. Following this, she underwent radiation therapy to her left breast and was started on adjuvant hormonal treatment with anastrozole. She took this only for a month due to joint pain and did not want to start any other hormonal agents. She has been on surveillance since then with the last visit in 2014. She has a history of hypertension for more than 35 years and has been off treatment. History of GERD in the past requiring proton pump inhibitor therapy. History of osteoporosis and on treatment with the oral bisphosphonates in the past. PAST SURGICAL HISTORY: Include bilateral carpal tunnel release, TAHBSO in 1979, for a tubal and appendectomy at the same time as her hysterectomy. [place] tooth extraction and left breast cancer requiring lumpectomy and axillary node dissection in early 2004. SOCIAL HISTORY: The patient is and lives near [place], [place]. She has four children, three daughters and a son, who all live close by. Two of her children are biological and two are adopted. She has a 18-29-lyrq-year history of tobacco use and was only smoking three cigarettes a day recently. She has quit in the past, but has restarted on few occasions. No history of alcohol or other recreational drug use. 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 FAMILY HISTORY: Significant for mother who was diagnosed with breast cancer at the age of 51 years. The patient does not know the rest of the maternal side of the family as her mother was adopted. There are no malignancies in the paternal side of the family that the patient knows of. Her sister was diagnosed with a DVT while in her late 70s. A niece was diagnosed with a CVA at the age of 18 years, both of which were unprovoked. No other hematologic problems in the family that the patient knows of. PHYSICAL EXAMINATION: GENERAL: Today showed elderly female, moderately obese, awake and oriented and in no acute distress. VITAL SIGNS: Temperature was 97.8, pulse rate of 93, respirations 16, blood pressure 108/67, with oxygen saturation of 91% on 2 liters of oxygen by nasal cannula. HEENT: Normocephalic, extraocular muscles intact, conjunctivae pink, and oral mucosa moist. NECK: Supple with no JVD. No cervical, supraclavicular or axillary lymphadenopathy palpable. CHEST: Symmetrical. LUNGS: Slightly diminished breath sounds bilaterally without any wheezes or rales. CARDIOVASCULAR: Regular in rate and rhythm without murmurs or gallops. ABDOMEN: Obese, soft, nontender with no hepatosplenomegaly or other masses palpable. EXTREMITIES: Showed edema around the left lower extremity. No cords palpable. Rest of extremities without edema. NEUROLOGIC: Grossly intact without focal motor deficits. LABORATORY DATA: CBC done yesterday at the time of admission showed WBC 12.9, hemoglobin 13.3, platelet count 310,000 with neutrophil count 9.4 and lymphocyte count 2.2. Chemistry panel from yesterday showed normal electrolytes. BUN was 19 and creatinine 0.74 with GFR more than 60 mL/minute. Nonfasting glucose was 119. Measured calcium was 10.4 with an albumin level of 4.3 and corrected calcium 10.2. Liver function studies were within normal limits. Venous Doppler study of the left lower extremity showed partially occlusive thrombus in the mid femoral vein with occlusive thrombus in the lower femoral vein and popliteal vein. There appears to be a thrombus in the posterior tibial vein and the calf. No fluid collection seen. CT angiogram of the chest done today showed a small defect in the pulmonary arteries to the right lower lobe consistent with a pulmonary embolus. Band of increased density in the right lung base either due to chronic atelectasis/scar formation. It could also be due to mild pneumonia, atelectasis. Emphysematous changes involving both lungs. A 1.4 cm rounded soft tissue density in the lateral aspect of left breast which was present on the previous examination and has not changed significantly. Thank you for allowing me to participate in your patient's care. Job ID: [id number] DocumentID: [id number] Dictated Date: 09/11/2018 17:57:52 Hydrochloric Acid Operator Date: 09/11/2018 19:10:44 Dictated By: RJ RIOS MD
[2018-09-12] MEDS ORDERED: FUROSEMIDE 40 MG (LASIX) TAB PO SCH (15:00)
[2018-10-02] MEDS ORDERED: RIVAROXABAN 20 MG TABLET (XARELTO) PO SCH (17:00)
== END 2018-09-11 13:45 | disposition home or self-care (01) ==
LOC: RAD 12:49 → UNDOADMOB 13:52 → 4TH 13:52 → UNDODISOB 09-11 17:15
PROVIDERS: ADMIT Family Medicine; ATTEND Family Medicine
DX: I82.412 Acute embolism and thrombosis of left femoral vein (principal); I82.432 Acute embolism and thrombosis of left popliteal vein; F17.210 Nicotine dependence, cigarettes, uncomplicated; J44.9 Chronic obstructive pulmonary disease, unspecified; I10 Essential (primary) hypertension; M81.0 Age-related osteoporosis without current pathological fracture; Z85.3 Personal history of malignant neoplasm of breast; Z99.81 Dependence on supplemental oxygen; Z79.899 Other long term (current) drug therapy; Z92.21 Personal history of antineoplastic chemotherapy; Z92.3 Personal history of irradiation
CPT/HCPCS: 36415; 71275; 80048; 80053; 85025; 85610; 94640; 94760

== ENCOUNTER 2018-11-25 12:45 | Outpatient (RCR) | payer MEDICARE, OTHER ==
[~2018-11-25 12:45] MED LIST changes: +ALBU18HF2 INH; -AMLO10TA6 PO; +AMLO10TA7 PO; +FURO40TA4 PO; +MONT10TA24 PO; +RIVA1TAB PO; +TRAM1TAB7 PO
== END 2018-12-31 | disposition home or self-care (01) ==
LOC: ONC 12:45
PROVIDERS: ATTEND Internal Medicine Hematology & Oncology
DX: I82.402 Acute embolism and thrombosis of unspecified deep veins of left lower extremity (principal); I26.99 Other pulmonary embolism without acute cor pulmonale; Z85.3 Personal history of malignant neoplasm of breast; F17.210 Nicotine dependence, cigarettes, uncomplicated; J44.9 Chronic obstructive pulmonary disease, unspecified; I10 Essential (primary) hypertension; M81.0 Age-related osteoporosis without current pathological fracture; K21.9 Gastro-esophageal reflux disease without esophagitis; E78.00 Pure hypercholesterolemia, unspecified; E66.9 Obesity, unspecified; Z68.31 Body mass index [BMI] 31.0-31.9, adult; Z99.81 Dependence on supplemental oxygen; Z79.01 Long term (current) use of anticoagulants; Z79.899 Other long term (current) drug therapy; Z92.21 Personal history of antineoplastic chemotherapy; Z92.3 Personal history of irradiation
CPT/HCPCS: 81240; 81241; 99213

== ENCOUNTER → 2019-01-13 | Outpatient (CLI) | payer MEDICARE, OTHER ==
--- NOTE | 2019-01-13 19:49 | Diagnostic Imaging Report ---
PROCEDURE: US left lower extremity venous. TECHNIQUE: Multiple real-time grayscale images were obtained over the left lower extremity in various projections. Additional duplex Doppler and color Doppler images were also obtained. INDICATION: History of deep venous thrombosis. Comparison made with prior examination from 09/10/2018. FINDINGS: The left common femoral, superficial femoral, popliteal veins and tibial veins demonstrate normal response to compression, augmentation, and Valsalva. There are no abnormal left lower extremity fluid collections or masses. IMPRESSION: No evidence of deep venous thrombosis in the left lower extremity. Dictated by: Dictated on workstation # [id number]
== END ==
LOC: RAD 14:40
PROVIDERS: ATTEND Family Medicine
DX: Z86.718 Personal history of other venous thrombosis and embolism (principal)

== ENCOUNTER → 2021-03-20 | Outpatient (CLI) | payer MEDICARE, OTHER ==
[~2021-03-20] MED LIST changes: +AMLO-251 PO; -AMLO10TA7 PO; -ENAL20TA PO; +ENAL20TA16 PO; -MONT10TA24 PO; +MONT10TA32 PO; -VITA-240 PO; +VITA-261 PO
--- NOTE | 2021-03-20 10:44 | Diagnostic Imaging Report ---
Indication: Pain and popping lower right ribs. Time of exam: 10:18 AM There is a fracture involving the anterior right 10th rib. There is also a fracture of the right posterior 7th rib. The age of the 7th rib fracture is indeterminate. The lungs are clear. No parenchymal contusion, effusion or pneumothorax is seen. IMPRESSION: Right 7th and 10th rib fractures. Dictated by: Dictated on workstation # [id number]
== END ==
LOC: RAD 09:55
PROVIDERS: ATTEND Nurse Practitioner Family
DX: S22.41XA Multiple fractures of ribs, right side, initial encounter for closed fracture (principal); X58.XXXA Exposure to other specified factors, initial encounter
CPT/HCPCS: 71100

== ENCOUNTER → 2022-01-19 | Outpatient (CLI) | payer MEDICARE, OTHER ==
[~2022-01-19] MED LIST changes: +MONT-40 PO; -MONT10TA32 PO
--- NOTE | 2022-01-19 11:40 | Diagnostic Imaging Report ---
INDICATION: COPD. Correlation is made with prior chest from 10/24/2015. FINDINGS: The heart size normal. There appears to be a mass that has developed in the region of the lingula. Otherwise lungs are clear. No effusion or pneumothorax is identified. IMPRESSION: Masslike density has developed in the lingula. Dedicated CT chest would be recommended for further evaluation. Dictated by: Dictated on workstation # [id number]
--- NOTE | 2022-01-19 15:23 | Diagnostic Imaging Report ---
INDICATION: Routine screening. COMPARISON: 01/17/2021 and 01/26/2019. TECHNIQUE: 2D and 3D bilateral screening mammography was performed with CAD. FINDINGS: Both breasts are heterogeneously dense, limiting the sensitivity of mammography. There are post-therapeutic changes in the left breast. Numerous benign calcifications are noted. No discrete mass or malignant-appearing microcalcifications are seen. The axillae are unremarkable. IMPRESSION: No mammographic features suspicious for malignancy are identified. ACR BI-RADS Category 2: Benign findings. Result letter will be mailed to the patient. Note: At least 10% of breast cancer is not imaged by mammography. Dictated by: Dictated on workstation # [id number]
== END ==
LOC: RAD 11:30
PROVIDERS: ATTEND Family Medicine
DX: Z12.31 Encounter for screening mammogram for malignant neoplasm of breast (principal); J44.9 Chronic obstructive pulmonary disease, unspecified; Z85.3 Personal history of malignant neoplasm of breast
CPT/HCPCS: 71046; 77063; 77067

== ENCOUNTER → 2022-01-23 | Outpatient (CLI) | payer MEDICARE, OTHER ==
[~2022-01-23] MED LIST changes: +HOLD METFORMIN - RECEIVED CONTRAST 20 ML VIAL IV SCH; +IOHEXOL 350 MG/ML 100 ML (OMNIPAQUE 350) VIAL IV ONE; +NS 100 ML (IVPB) BAG IV ONE
[2022-01-23 10:38] LABS: CREATININE SERUM 0.82 MG/DL (0.60-1.30)
--- NOTE | 2022-01-23 12:36 | Diagnostic Imaging Report ---
PROCEDURE: CT chest with contrast only. TECHNIQUE: Multiple contiguous axial images were obtained through the chest after administration of intravenous contrast. Auto Exposure Controls were utilized during the CT exam to meet ALARA standards for radiation dose reduction. DATE: January 23, 2022. COMPARISON: Chest radiographs January 20, 2022. CT chest September 11, 2018. INDICATION: 71-year-old female, history of breast cancer status post lumpectomy with chemotherapy and radiation treatment. Evaluation of pulmonary nodule. FINDINGS: There is a mass in the left upper lobe measuring 6.3 x 3.5 cm in axial extent. There are adjacent linear opacities likely reflecting adjacent atelectasis. There are upper lobe predominant findings of emphysema. There is focal atelectasis in the left lower lobe on axial image 61 and adjacent sequential images. There is no additional pulmonary nodule or lung mass. There is no pneumothorax. There is no pleural effusion. The more central airways are patent. The heart is not enlarged. There is no pericardial effusion. There are coronary artery calcifications and additional areas of atherosclerotic disease. There is no identified central pulmonary embolus. There is no identified abnormally enlarged mediastinal, hilar, or axillary lymph node meeting CT size criteria for adenopathy. There are surgical clips in left axilla. The left lobe of the thyroid is hypoplastic. There is a nonobstructing left renal stone measuring 7 mm in size. The patient is status post cholecystectomy. There are multilevel degenerative changes of the spine. There is a chronic nonunited prior fracture of the right lateral seventh rib. There is no identified bone lesion concerning for a bone metastasis. There are vertebral body endplate concavities with unchanged appearance since September 2018. There is no acute bony abnormality. IMPRESSION: CT CHEST. 1. Left upper lobe mass highly concerning for malignancy. A primary lung malignancy versus metastatic lesion are the primary differential diagnostic considerations. Biopsy for definitive diagnosis is needed. 2. No additional identified pulmonary nodule. 3. No evidence of metastatic angle disease or other potential metastatic lesion. 4. Nonobstructing left renal stone. Dictated by: Dictated on workstation # [id number]
== END ==
LOC: RAD 11:15
PROVIDERS: ATTEND Nurse Practitioner Family
DX: R91.8 Other nonspecific abnormal finding of lung field (principal); N20.0 Calculus of kidney; Z85.3 Personal history of malignant neoplasm of breast; Z90.10 Acquired absence of unspecified breast and nipple; Z92.3 Personal history of irradiation; Z92.21 Personal history of antineoplastic chemotherapy
CPT/HCPCS: 36415; 71260; 82565; 84520

== ENCOUNTER 2022-03-07 10:21 | Outpatient (CLI) | payer MEDICARE, OTHER ==
[~2022-03-07] VITALS: Ht 152.4 cm; Wt 64.4 kg
[~2022-03-07 10:21] MED LIST changes: -HOLD METFORMIN - RECEIVED CONTRAST 20 ML VIAL IV SCH; -IOHEXOL 350 MG/ML 100 ML (OMNIPAQUE 350) VIAL IV ONE; -NS 100 ML (IVPB) BAG IV ONE
[2022-03-07] MEDS ORDERED: EZET10TA49 PO (10:57)
[2022-03-07] MEDS ORDERED: FLUT1BLS3 IH (10:57)
[2022-03-07] MEDS ORDERED: CHOL100048 PO (10:57)
[2022-03-07] MEDS ORDERED: UBID100C17 PO (10:58)
[2022-03-07] MEDS ORDERED: ALPR0.5T7 PO (10:58)
[2022-03-07] MEDS ORDERED: OMG1KC PO (10:58)
== END 2022-03-07 11:00 | disposition home or self-care (01) ==
LOC: PREOP 10:21
PROVIDERS: ATTEND Surgery
DX: Z01.818 Encounter for other preprocedural examination (principal)

== ENCOUNTER 2022-03-09 10:55 | Day surgery (SDC) | payer MEDICARE, OTHER ==
--- NOTE | 2022-03-08 08:22 | HISTORY AND PHYSICAL ---
DATE OF SERVICE: Date of admission will be 03/09/2022. ATTENDING PRIMARY CARE PHYSICIAN: Lilly Weber MD HISTORY OF PRESENT ILLNESS: The patient is a 71-year-old male with a complex situation. She reports that she had increasing cough a few weeks ago and had an x-ray performed, which did show a lesion along the left lung. This was then followed by CT scan, which did show a significant size mass and she underwent a biopsy of lesion on 03/02/2022. She does not have the results back. A PET scan was also performed, which did show the left lung lesion light up as well as another significant area of the ascending colon. She did have a colonoscopy; however, this was approximately 20 years ago. She does not recall any change in bowel habits as well as no inadvertent weight loss or any red blood per rectum nor any dark tarry stools. She also does have a personal history of breast cancer diagnosed in 2004 and underwent a lumpectomy as well as a sentinel node, which was found to be positive and underwent an axillary node dissection as well as chemotherapy and radiation. She was scheduled to undergo antiestrogen therapy for 5 years; however, she states that the side effects were severe and she did not take this medication. She also does have a significant smoking history for 57 years and also does have a history of COPD. This may represent a primary lung cancer as well as metastatic breast cancer. The lesion of the colon appears to be any neoplastic process as well and may also be a primary lesion; however, cannot exclude metastatic lesion and we will schedule her for colonoscopy. PAST MEDICAL HISTORY: Hypertension, hypercholesterolemia, left breast cancer 2004, COPD. PAST SURGICAL HISTORY: Bilateral carpal tunnel release, evacuation tubal in 1979, D and C in 1972 and 1979, total hysterectomy in 1979, laparoscopic cholecystectomy in 2007, left breast lumpectomy and axillary node dissection in 2004. ALLERGIES: CODEINE. MEDICATIONS: Amlodipine 10 mg daily, enalapril 20 mg daily, Lasix 40 mg daily, Zetia 10 mg daily, Ventolin inhaler two puffs q.6 hours p.r.n., alprazolam 0.5 mg p.r.n., tramadol p.r.n., Prilosec 20 mg daily. SOCIAL HISTORY: Positive smoke 57 pack years. Negative alcohol. FAMILY HISTORY: Mother, breast cancer, hypertension, stroke in her 80s. Father, hypertension, diabetes. VITAL SIGNS: Blood pressure 128/64. Current weight 145 pounds at 5 feet 0 inches. REVIEW OF SYSTEMS: Well-nourished male, currently in no acute distress. She is oxygen dependent. She reports that she did have a previous worsening cough, which was nonproductive. She does not report any chest pain, palpitations, or diaphoresis. No nausea, vomiting, no diarrhea or constipation, no red blood per rectum, no dark tarry stools. No fever, no chills, no recent inadvertent weight loss. All other review of systems negative. PHYSICAL EXAMINATION: CHEST: Distant breath sounds and scattered wheezes bilaterally. HEART: Regular, no murmurs. EXTREMITIES: No lower extremity edema, negative Homans sign. HEENT: No scleral icterus. NECK: No cervical lymphadenopathy. ABDOMEN: Soft, nontender, nondistended. No palpable masses. SKIN: Warm, dry. ASSESSMENT AND PLAN: A 71-year-old female with a lesion of the left lung as well as the ascending colon. She has a history of breast cancer in 2004 and was found to have positive lymph node requiring axillary node dissection and was unable to take the antiestrogen therapy for 5 years due to the side effects. She also has a significant smoking history and has not had a colonoscopy in 20 years. These lesions could represent a lung primary. However, could also represent metastatic disease from either the lung, colon as well as the breast and we will schedule her for a colonoscopy as well as biopsies as appropriate. Job ID: [id number] DocumentID: [id number] Dictated Date: 03/06/2022 16:43:04 Equipment Mechanic Specialist Date: 03/06/2022 17:22:07 Dictated By: KLAUS PATTERSON MD
[~2022-03-09] VITALS: Ht 152.4 cm; Wt 64.4 kg
[~2022-03-09 10:55] MED LIST changes: +ALPR0.5T7 PO; +EZET10TA49 PO; +FLUT1BLS3 IH; +OMG1KC PO; +UBID100C17 PO
[2022-03-09] MEDS ORDERED: LACTATED RINGERS 1,000 ML IV STA (11:17)
[2022-03-09 11:23] VITALS: BP 139/66
--- NOTE | 2022-03-09 11:24 | Progress Note-Pre Operative ---
Pre-Operative Progress Note H&P Reviewed The H&P was reviewed, patient examined and no changes noted. Date Seen by Provider: March 09, 2022 Time Seen by Provider: 11:20 Date H&P Reviewed: March 09, 2022 Time H&P Reviewed: 11:20 Pre-Operative Diagnosis: screening o KLAUS PATTERSON MD March 09, 2022 11:24
--- NOTE | 2022-03-09 11:25 | Discharge Inst-Surgical ---
D/C Lap Instructions-YESENIA Follow Up Activity as tolerated High Fiber Diet 25g or more per day Avoid Alcohol, Caffeine, Spicy [place] and Acid foods. Drink 64 fluid oz or more of fluids per day. Symptoms to Report: Fever over 101 degree F, Nausea/Vomiting If any problems/questions: Contact your physician or go to Emergency Room KLAUS PATTERSON MD March 09, 2022 11:25
[2022-03-09] MEDS ORDERED: LIDOCAINE JELLY 2% 6 ML SYRINGE MM PRN (11:30)
[2022-03-09] MEDS ORDERED: ONDANSETRON 4 MG/2 ML (SDV) Z0FRAN IVP PRN (11:30)
[2022-03-09] MEDS ORDERED: ONDANSETRON 4 MG (ZOFRAN) ORAL DISSOLVE TAB PO PRN (11:30)
[2022-03-09] MEDS ORDERED: KETAMINE 50 MG/5 ML SYRINGE ONE (12:16)
[2022-03-09] MEDS ORDERED: PROPOFOL INJECTION 50 ML IV ONE (12:16)
[2022-03-09 12:50] VITALS: BP 105/53
[2022-03-09 12:55] VITALS: BP 111/56
[2022-03-09 13:15] VITALS: BP 144/70
[2022-03-09 13:27] VITALS: BP 144/70
--- NOTE | 2022-03-09 14:30 | Progress Note-Post Operative ---
Post-Operative Progess Note Surgeon (s)/Assistant Plant Manager (s) Surgeon KLAUS PATTERSON MD Assistant Plant Manager: none Pre-Operative Diagnosis screening colo Post-Operative Diagnosis mild chronic stage 2 ext and int hemorrhoids, moderate sigmoid diverticulosis. Procedure & Operative Findings Date of Procedure 03/09/22 Procedure Performed/Findings colonoscopy. Anesthesia Type mac Estimated Blood Loss Estimated blood loss (mL): minimal Specimens/Packing Specimens Removed none KLAUS PATTERSON MD March 09, 2022 14:30
--- NOTE | 2022-03-09 14:46 | Anesthesia-General Post-Op ---
MAC Patient Condition Mental Status/LOC: Same as Preop Cardiovascular: Satisfactory Nausea/Vomiting: Absent Respiratory: Satisfactory Pain: Controlled Complications: Absent Post Op Complications Complications None Follow Up Care/Instructions Patient Instructions None needed. Anesthesiology Discharge Order Discharge Order Patient is doing well, no complaints, stable vital signs, no apparent adverse anesthesia problems. No complications reported per nursing. DEMETRIA SAPP CRNA March 09, 2022 14:46
--- NOTE | 2022-03-09 19:42 | OPERATIVE REPORT ---
DATE OF SERVICE: 03/09/2022 ATTENDING PRIMARY CARE PHYSICIAN: Dr. Lilly Weber. PREOPERATIVE DIAGNOSIS: Screening colonoscopy with hypermetabolic uptake identified of the ascending colon on PET scan. POSTOPERATIVE DIAGNOSES: Mild chronic stage II external and internal hemorrhoids, mild colitis of the cecum, and ascending colon. No neoplastic lesions. Moderate sigmoid diverticulosis. PROCEDURES PERFORMED: Colonoscopy with biopsy. SURGEON: Klaus Patterson MD. ANESTHESIA: Monitored anesthesia care. ESTIMATED BLOOD LOSS: Minimal. FINDINGS: Mild chronic stage II external and internal hemorrhoids, mild colitis of the cecum, and ascending colon. No neoplastic lesions. Moderate sigmoid diverticulosis. DISPOSITION: The patient tolerated the procedure well. INDICATIONS FOR PROCEDURE: The patient is a 71-year-old female with a complex medical history. She reported that she had increasing cough for the past few weeks. An x-ray was performed, which did show a lesion along the left lung, which was followed by a CT scan, which did show a significant size mass and underwent a biopsy of a lesion on 03/02/2022. A PET scan was then performed, which did show the left lung lesion as well as another lesion along the ascending colon of significant size. She did have a colonoscopy; however, this was approximately 20 years ago. She does not report any change in bowel habits as well as no red blood per rectum nor any dark tarry stools. She also does not report any recent inadvertent weight loss. She does have a personal history of breast cancer diagnosed in 2004 and underwent a lumpectomy and sentinel node, which was found to be positive and underwent an axillary node dissection as well as chemotherapy and radiation; however, was unable to proceed with antiestrogen therapy for five years due to the side effects of the medication. DESCRIPTION OF PROCEDURE: The patient was brought to the endoscopy suite and laid in the left lateral decubitus position. After adequate IV pain and sedative medications and monitored anesthesia care, a digital rectal examination was performed. Mild chronic stage II external and internal hemorrhoids were identified, which were not actively edematous nor inflamed and no bleeding. Normal sphincter tone was felt and there were no palpable masses. The endoscope was then intubated into the anus and rectum gently insufflated. The endoscope was then advanced through the valves of [place] of the rectum with no polyps or any neoplasms identified. Through the sigmoid colon, a moderate sigmoid diverticulosis was identified. The endoscope was then advanced through the remainder of the descending, transverse, and ascending colon to the cecum. At the level of the ascending colon as well as the cecum, a mild colitis was identified and biopsies were taken of the ascending colon as well as the cecum with biopsy forceps with visualization of good hemostasis. There were no neoplastic lesions identified. The endoscope was then slowly withdrawn while taking a second look and suctioning of residual air with no additional findings. The patient tolerated the procedure well. We feel that the likely etiology of the PET scan showing activity of the ascending colon was a mild subclinical colitis. We will refer her back to Oncology for further evaluation and therapy. We will also recommend a high-fiber diet with at least 25 grams of fiber daily as well as significant amounts of water to promote soft stools on a daily basis to prevent further propagation or complications related to the diverticulosis. Job ID: [id number] DocumentID: [id number] Dictated Date: 03/09/2022 12:51:38 City Alderman Date: 03/09/2022 19:41:12 Dictated By: KLAUS PATTERSON MD MTDD
== END 2022-03-09 13:27 | disposition home or self-care (01) ==
LOC: ENDO 10:55
PROVIDERS: ATTEND Surgery
DX: Z12.11 Encounter for screening for malignant neoplasm of colon (principal); K57.30 Diverticulosis of large intestine without perforation or abscess without bleeding; K64.1 Second degree hemorrhoids; K64.4 Residual hemorrhoidal skin tags; K52.9 Noninfective gastroenteritis and colitis, unspecified
CPT/HCPCS: 88305

== ENCOUNTER 2022-03-23 07:06 | Outpatient (CLI) | payer MEDICARE, OTHER ==
[~2022-03-23] VITALS: Ht 167.7 cm; Wt 65.9 kg
== END 2022-03-23 09:55 ==
LOC: PREOP 07:06
PROVIDERS: ATTEND Surgery
DX: Z01.818 Encounter for other preprocedural examination (principal); C34.90 Malignant neoplasm of unspecified part of unspecified bronchus or lung

== ENCOUNTER 2022-03-27 12:48 | Outpatient (RCR) | payer MEDICARE, OTHER | END 2022-04-03 | disposition home or self-care (01) | LOC: ONC 12:48 | PROVIDERS: ATTEND Radiology Radiation Oncology | DX: Z51.0 Encounter for antineoplastic radiation therapy (principal); C34.90 Malignant neoplasm of unspecified part of unspecified bronchus or lung | CPT/HCPCS: 77300; 77301; 77334; 77338; 77470; 99204 ==

== ENCOUNTER 2022-03-28 11:28 | Day surgery (SDC) | payer MEDICARE, OTHER ==
--- NOTE | 2022-03-23 07:31 | HISTORY AND PHYSICAL ---
DATE OF SERVICE: PROCEDURE DATE: 03/28/2022. ATTENDING PRIMARY CARE PHYSICIAN: Lilly Weber MD HISTORY OF PRESENT ILLNESS: The patient is a 71-year-old female with a complex medical history. She reported that she had increasing cough for the past few weeks. She had an x-ray performed, which did show a lesion of the left lung, which was followed by CT scan, which did show a significant sized mass and underwent a biopsy of this lesion on 03/02/2022. She then had a PET scan performed, which did show the left lung lesion as well as another lesion along the ascending colon of significant size. She reports that she had a colonoscopy; however, this was 20 years ago. She does have a personal history of breast cancer that was diagnosed in 2004 and underwent a lumpectomy and sentinel node, which was found to be positive and then underwent an axillary node dissection as well as chemotherapy and radiation; however, was unable to proceed with antiestrogen therapy for 5 years due to the side effects of the medication. On 03/09/2022, she underwent a colonoscopy with biopsy. Findings were mild chronic stage II external and internal hemorrhoids, mild colitis of the cecum and ascending colon. There were no neoplastic lesions and there was some moderate sigmoid diverticulosis. Biopsies of the cecum and ascending colon were negative for any colitis. On today's visit, she reports that the pathology from the lung biopsy was consistent with lung cancer and is needing a port placed to undergo chemotherapy. PAST MEDICAL HISTORY: Left breast cancer in 2004, COPD, hypertension, hypercholesterolemia, diverticulosis. PAST SURGICAL HISTORY: Bilateral carpal tunnel release in 1985 and 1999, ectopic in 1979, dilatation and curettage x2 in 1972 and 1979, complete hysterectomy in 1979, laparoscopic cholecystectomy 2007, left breast lumpectomy and sentinel node biopsy 2004. ALLERGIES: CODEINE. MEDICATIONS: Calcium and vitamin C, vitamin D3, vitamin E, multivitamin, Prilosec, CoQ10, fish oil 1000 mg b.i.d., Ventolin 100 mcg inhaler 2 puffs every 6 hours as needed, Xanax 0.5 half tablet p.r.n., tramadol 37.5/325 mg p.r.n., enalapril 20 mg daily, amlodipine 10 mg daily, Lasix 40 mg daily, Zetia 10 mg daily. SOCIAL HISTORY: Positive for tobacco smoke at 2 to 3 cigarettes per day for 57 years. Rare for alcohol. FAMILY HISTORY: Father, diabetes, hypertension, myocardial infarction. Mother, breast cancer, hypertension, stroke. Sister, DVT. VITAL SIGNS: Blood pressure is 128/64. Current weight is 145 pounds at 5 feet 0 inches. REVIEW OF SYSTEMS: Well-nourished female, in no acute distress. She is not experiencing any shortness of breath or difficulty breathing. No chest pain, palpitations or diaphoresis. She does report a cough. No red blood per rectum. No dark tarry stools. No nausea, vomiting or abdominal pain. No diarrhea or constipation. No recent inadvertent weight loss. All other review of systems negative. PHYSICAL EXAMINATION: CHEST: Clear. Good breath sounds bilaterally. HEART: Regular, no murmurs. EXTREMITIES: No lower extremity edema. Negative Homans sign. HEENT: No scleral icterus. NECK: No cervical lymphadenopathy. ABDOMEN: Soft, nontender, nondistended. SKIN: Warm, dry and pink. NEUROLOGIC: Awake, alert and oriented x3. ASSESSMENT AND PLAN: A 71-year-old female with a biopsy proven left lung cancer. At this time, she is keen to undergo chemotherapy and will need a Groshong implantable port. At this time, we will proceed with scheduling her for placement of a Groshong implantable port. Job ID: [id number] DocumentID: [id number] Dictated Date: 03/21/2022 13:45:42 Dedicated Regional Driver Date: 03/21/2022 14:00:04 Dictated By: JIMMY VELASQUEZ APRN
[2022-03-28] VITALS (8 sets, daily range): BP systolic 150–169; BP diastolic 72–94
[~2022-03-28] VITALS: Ht 167.7 cm; Wt 65.9 kg
[2022-03-28] MEDS ORDERED: PROPOFOL INJECTION 50 ML IV ONE (12:22)
[2022-03-28] MEDS ORDERED: MIDAZOLAM 2 MG/2 ML (VERSED) VIAL ONE (12:22)
[2022-03-28] MEDS ORDERED: 0.9% SODIUM CHLORIDE PF INJ 20 ML VIAL ONE (12:28)
[2022-03-28] MEDS ORDERED: HEParin (CENTRAL IV FLUSH) 500 UNIT/5 ML SYR ONE (12:28)
[2022-03-28] MEDS ORDERED: LIDOCAINE/EPI 2% 1:200,00 (XYLOCAINE) 20 ML VIAL ONE (12:28)
[2022-03-28] MEDS ORDERED: ACETAMINOPHEN 325 MG TABLET PO PRN (12:30)
[2022-03-28] MEDS ORDERED: morphine INJ 10 MG/ML 1ML (SYR OR VIAL) IVP PRN ×2 (12:30)
[2022-03-28] MEDS ORDERED: ONDANSETRON 4 MG/2 ML (SDV) Z0FRAN IVP PRN ×2 (12:30→14:30)
[2022-03-28] MEDS ORDERED: HYDROcodone/APAP 5 MG/325 MG (LORTAB) TAB PO ONE (12:30)
--- NOTE | 2022-03-28 12:30 | Progress Note-Pre Operative ---
Pre-Operative Progress Note H&P Reviewed The H&P was reviewed, patient examined and no changes noted. Date Seen by Provider: March 28, 2022 Time Seen by Provider: 12:00 Date H&P Reviewed: March 28, 2022 Time H&P Reviewed: 12:00 Pre-Operative Diagnosis: hx lung ca KLAUS PATTERSON MD March 28, 2022 12:30
--- NOTE | 2022-03-28 12:32 | Discharge Inst-Surgical ---
D/C Lap Instructions-YESENIA Follow Up PRN Port may be accessed and used at any time. Activity as tolerated Regular Diet Symptoms to Report: Fever over 101 degree F, Nausea/Vomiting Infection Signs and Symptoms to report: Increased redness, Foul odor of wound, Increased drainage Bathing instructions: May shower Operative Area Clean/Dry; Keep incision clean/dry If any problems/questions: Contact your physician or go to Emergency Room KLAUS PATTERSON MD March 28, 2022 12:32
[2022-03-28] MEDS ORDERED: ceFAZolin INJECTION 1,000 MG ONE (12:52)
[2022-03-28] MEDS ORDERED: ceFAZolin INJECTION 1,000 MG VIAL IV ONE (13:15)
[2022-03-28] MEDS ORDERED: LACTATED RINGERS 1,000 ML IV PRN (13:30)
--- NOTE | 2022-03-28 14:19 | Progress Note-Post Operative ---
Post-Operative Progess Note Surgeon (s)/Electric Bath Attendant (s) Surgeon KLAUS PATTERSON MD Electric Bath Attendant: none Pre-Operative Diagnosis hx lung ca Post-Operative Diagnosis same Procedure & Operative Findings Date of Procedure 03/28/22 Procedure Performed/Findings right subclavian groshong implantable catheter under flouroscopy. Anesthesia Type mac with local Estimated Blood Loss Estimated blood loss (mL): minimal Specimens/Packing Specimens Removed none KLAUS PATTERSON MD March 28, 2022 14:19
[2022-03-28] MEDS ORDERED: morphine INJ 10 MG/ML 1ML (SYR OR VIAL) IVP ONE (14:30)
[2022-03-28] MEDS ORDERED: morphine INJ 10 MG/ML 1ML (SYR OR VIAL) ONE (14:33)
--- NOTE | 2022-03-28 15:19 | Diagnostic Imaging Report ---
INDICATION: Port-A-Cath placement. EXAMINATION: Frontal chest was obtained at 2:58 p.m. COMPARISON: 01/19/2022. There is cardiomegaly. There is no change in left perihilar mass. There are chronic appearing increased interstitial markings. There is no pneumothorax or pleural fluid. New right-sided Port-A-Cath is seen with tip overlying the low SVC. There are surgical clips in the left axilla. IMPRESSION: New right-sided Port-A-Cath in place with tip overlying the low SVC. No change in left perihilar mass. No pneumothorax or pleural fluid. Dictated by: Dictated on workstation # [id number]
--- NOTE | 2022-03-28 16:05 | Diagnostic Imaging Report ---
INDICATION: Port-A-Cath placement. FINDINGS: Intraoperative fluoroscopy view obtained during Port-A-Cath placement in surgery. A single view obtained, 16.2 seconds of fluoroscopy time used. Single view demonstrates catheter in place from right subclavian vein approach tip overlying the upper SVC. IMPRESSION: Limited intraoperative view demonstrates central venous catheter placement, as above. Dictated by: Dictated on workstation # [id number]
--- NOTE | 2022-03-28 23:36 | OPERATIVE REPORT ---
DATE OF SERVICE: 03/28/2022 ATTENDING PRIMARY CARE PHYSICIAN: Lilly Weber MD PREOPERATIVE DIAGNOSIS: Left lung cancer. POSTOPERATIVE DIAGNOSIS: Left lung cancer. PROCEDURE: Placement of right subclavian Groshong implantable catheter under fluoroscopy. SURGEON: Klaus Patterson MD ANESTHESIA: Monitored anesthesia care with local. ESTIMATED BLOOD LOSS: Minimal. FINDINGS: Catheter tip at superior vena cava -- right atrial junction. DISPOSITION: The patient tolerated the procedure well. INDICATIONS: The patient is a 71-year-old female with a complex past medical history. She reported that she has had increasing cough for the past few weeks and underwent an x-ray, which showed a significant size of the left lung lesion, which was followed by a CT scan. She then underwent biopsies, which did come back consistent with lung cancer. She also had a PET scan performed, which again showed a left lung lesion; however, the ascending colon did light up as well. She underwent a colonoscopy on 03/09/2022 and there was a mild colitis of the cecum and ascending colon; however, no neoplastic lesions identified. The patient will now require a Groshong implantable catheter for chemotherapy. DESCRIPTION OF PROCEDURE: The patient was brought to the operating room, laid supine on the table. After adequate IV pain and sedative medications and monitored anesthesia care, the chest and neck were prepped and draped in standard surgical fashion. A 1% lidocaine with epinephrine was then used to anesthetize the right subclavian region. The right subclavian vein was then cannulated with drawing of venous blood and the guidewire inserted under fluoroscopy. Cannulating needle removed and a skin incision made using a 15 blade. The dilator and sheath were then introduced over the guidewire. The dilator and guidewire were then removed and the Groshong catheter was placed through the sheath until the tip of the catheter was at the superior vena caval -- right atrial junction and then the sheath removed. The inner wire within the catheter was then removed. The catheter cut down to size and port placed onto the catheter. The chest reservoir was then created by extending the skin incision laterally and a plane created between the subcutaneous fat and the anterior pectoralis fascia using blunt dissection as well as electrocautery with visualization of good hemostasis. The port was then placed into the reservoir and sutured to the anterior pectoralis fascia using 3-0 Vicryl interrupted sutures. Subcutaneous tissue was then reapproximated with the same suture in an interrupted fashion. The skin was closed using 4-0 Monocryl running subcuticular suture. Wound was then cleaned and covered with Dermabond. The port was accessed with drawing of venous blood and heparinized saline pushed in without any resistance. The patient tolerated the procedure well. We will get a post-procedure chest x-ray once confirmation of placement, port may be accessed and used at any time. Job ID: [id number] DocumentID: [id number] Dictated Date: 03/28/2022 14:26:42 Survey Party Chief Date: 03/28/2022 23:34:56 Dictated By: KLAUS PATTERSON MD
--- NOTE | 2022-04-04 07:33 | Anesthesia-General Post-Op ---
MAC Patient Condition Mental Status/LOC: Same as Preop Cardiovascular: Satisfactory Nausea/Vomiting: Absent Respiratory: Satisfactory Pain: Controlled Complications: Absent Post Op Complications Complications None Follow Up Care/Instructions Patient Instructions None needed. Anesthesiology Discharge Order Discharge Order Post-dated progress note: Patient was doing well after the procedure and seen on 03-28-22 at approximately 1430 with no complaints, stable vital signs, no apparent adverse anesthesia problems. No complications reported per nursing. SUMIT LORENZANA DO Apr 04, 2022 07:33
== END 2022-03-28 15:30 | disposition home or self-care (01) ==
LOC: SDC 11:28
PROVIDERS: ATTEND Surgery
DX: C34.92 Malignant neoplasm of unspecified part of left bronchus or lung (principal); Z85.3 Personal history of malignant neoplasm of breast; F17.210 Nicotine dependence, cigarettes, uncomplicated
CPT/HCPCS: 36561; 71045; 76000; 87081; C1788

== ENCOUNTER → 2022-05-03 | Outpatient (RCR) | payer MEDICARE, OTHER | END | disposition home or self-care (01) | LOC: ONC 04-05 10:57 | PROVIDERS: ATTEND Radiology Radiation Oncology | DX: Z51.0 Encounter for antineoplastic radiation therapy (principal); C34.90 Malignant neoplasm of unspecified part of unspecified bronchus or lung | CPT/HCPCS: 77300; 77336; 77338; 77386 ==

== ENCOUNTER 2022-05-29 09:31 | Outpatient (RCR) | payer MEDICARE, OTHER | END 2022-06-03 | disposition home or self-care (01) | LOC: ONC 09:31 | PROVIDERS: ATTEND Radiology Radiation Oncology | DX: Z51.0 Encounter for antineoplastic radiation therapy (principal); C34.90 Malignant neoplasm of unspecified part of unspecified bronchus or lung | CPT/HCPCS: 77336; 77386 ==

== ENCOUNTER 2022-06-28 09:54 | Outpatient (RCR) | payer MEDICARE, OTHER | END 2022-07-04 | LOC: ONC 09:54 | PROVIDERS: ATTEND Radiology Radiation Oncology | DX: C34.12 Malignant neoplasm of upper lobe, left bronchus or lung (principal) | CPT/HCPCS: 99213 ==

== ENCOUNTER → 2022-08-14 | Outpatient (CLI) | payer MEDICARE, OTHER ==
[~2022-08-14] MED LIST changes: -ALEN70TA2 PO; +ALEN70TA85 PO
--- NOTE | 2022-08-14 17:11 | Diagnostic Imaging Report ---
RADIOPHARMACEUTICAL: 25.4 mCi Tc-99m -MDP IV INDICATION: Left lung carcinoma COMPARISON: PET/CT dated 02/27/2022 TECHNIQUE: Anterior and posterior whole body images. FINDINGS: No suspicious focal radiotracer activity. The bilateral kidneys are visualized. IMPRESSION: 1. No evidence of osteoblastic osseous metastatic disease.. Dictated by: Dictated on workstation # [id number]
== END ==
LOC: CARD 10:30
PROVIDERS: ATTEND Internal Medicine Hematology & Oncology
DX: C34.32 Malignant neoplasm of lower lobe, left bronchus or lung (principal)
CPT/HCPCS: 78306; A9503

== ENCOUNTER → 2022-12-03 | Outpatient (CLI) | payer MEDICARE, OTHER ==
--- NOTE | 2022-12-03 18:30 | Diagnostic Imaging Report ---
INDICATION: Back pain. AP and lateral views of the thoracic spine are obtained. FINDINGS: The lumbar vertebrae are normal in alignment. There is diffuse degenerative change. There is loss of height of multiple thoracic vertebrae, including T8, T7, and T6, of indeterminate age. There is exaggerated lordosis. IMPRESSION: There are compression deformities in the mid thoracic spine, which are of indeterminate age. If there is pain in this area, consider MRI for further evaluation. There is no malalignment. There is diffuse degenerative change. Dictated by: Dictated on workstation # [id number]
== END ==
LOC: RAD 13:09
PROVIDERS: ATTEND Family Medicine
DX: M47.814 Spondylosis without myelopathy or radiculopathy, thoracic region (principal); M43.8X4 Other specified deforming dorsopathies, thoracic region
CPT/HCPCS: 72072

== ENCOUNTER → 2022-12-11 | Outpatient (CLI) | payer MEDICARE, OTHER ==
--- NOTE | 2022-12-11 09:31 | Diagnostic Imaging Report ---
INDICATION: History of breast cancer. Back pain. COMPARISON: None TECHNIQUE: Routine multiplanar and multisequence noncontrast MRI of the thoracic spine was performed. FINDINGS: There are multiple compression deformities of the mid and upper thoracic spine. Only the T7 level shows abnormal edema consistent with acute or subacute fracture. Discrete fracture line is not well visualized. Deformity primarily involves compression of the inferior endplate. There is no evidence of involvement of the posterior elements. There is associated posterior disc bulge with central posterior disc protrusion at this level, but no retropulsion of fracture fragments. There is no evidence of epidural hematoma. Note is made of exaggerated kyphosis of the upper thoracic spine. There is no significant anterolisthesis or retrolisthesis. There is no evidence of jumped facets. There is multilevel intervertebral disc height loss. Again, there is focal central posterior disc protrusion superimposed on broad-based posterior disc bulge at T7-T8 level. This results in focal mass effect on the anterior thecal sac and mild narrowing of the spinal canal. There is also mild narrowing of bilateral neural foramen. Small broad-based posterior disc bulge is also noted at T8-T9, but there is no associated significant spinal canal stenosis. Thoracic cord is normal in course and caliber. There is no evidence of cord edema. Pre and paravertebral soft tissue structures are unremarkable. IMPRESSION: 1. Acute/subacute fracture of T7. Patient may be a candidate for kyphoplasty. 2. Degenerative changes of the thoracic spine greatest at T7-T8 level. Dictated by: Dictated on workstation # [id number]
== END ==
LOC: RAD 08:28
PROVIDERS: ATTEND Family Medicine
DX: M47.814 Spondylosis without myelopathy or radiculopathy, thoracic region (principal)
CPT/HCPCS: 72146

== ENCOUNTER → 2023-02-06 | Outpatient (CLI) | payer MEDICARE, OTHER ==
--- NOTE | 2023-02-06 11:56 | Diagnostic Imaging Report ---
INDICATION: Routine screening. Comparison is made with prior mammogram from 01/19/2022 and 01/17/2021. 2-D and 3-D bilateral screening mammography was performed with CAD. CAD is utilized. The current study was also evaluated with a Computer Aided Detection (CAD) system. Both breasts are heterogeneously dense, limiting the sensitivity of mammography. Post therapeutic changes in the left breast appears stable. Benign calculus bilaterally again noted. No mass or malignant-appearing microcalcifications are seen. Left axilla is unremarkable. Chest wall port hub overlies the right axilla. IMPRESSION: BI-RADS Category 2 No mammographic features suspicious for malignancy are identified. Dictated by: Dictated on workstation # [id number]
== END ==
LOC: RAD 09:43
PROVIDERS: ATTEND Nurse Practitioner Family
DX: Z12.31 Encounter for screening mammogram for malignant neoplasm of breast (principal)
CPT/HCPCS: 77063; 77067

== ENCOUNTER → 2023-04-02 | Outpatient (CLI) | payer MEDICARE, OTHER ==
[~2023-04-02] MED LIST changes: +ENAL-70 PO; -ENAL20TA16 PO
--- NOTE | 2023-04-02 17:01 | Diagnostic Imaging Report ---
Indication: Kidney stones. Time of Exam: 1:41 PM Correlation is made with prior chest from 01/19/2022. Heart size normal. There is minimal infiltrate in the left mid lung field. Masslike density noted previously is no longer visualized. No effusion or pneumothorax. There is a right chest wall port with tip overlying the SVC. There are surgical clips in the left axilla. IMPRESSION: Minimal infiltrate in the left midlung field. Previously noted mass in the left midlung is no longer appreciated. Dictated by: Dictated on workstation # [id number]
== END ==
LOC: CARD 13:06
PROVIDERS: ATTEND Urology
DX: N20.0 Calculus of kidney (principal)
CPT/HCPCS: 71046

== ENCOUNTER → 2023-04-02 | Outpatient (CLI) | payer MEDICARE, OTHER ==
[2023-04-02 13:28] LABS: BASOPHILS # (AUTO) 0.1 10^3/uL (0.0-0.1); BASOPHILS % (AUTO) 1 % (0-10); EOSINOPHILS # (AUTO) 0.2 10^3/uL (0.0-0.3); EOSINOPHILS % (AUTO) 2 % (0-10); HEMATOCRIT 40 % (35-52); HEMOGLOBIN 13.2 g/dL (11.5-16.0); LYMPHOCYTES # (AUTO) 1.2 10^3/uL (1.0-4.0); LYMPHOCYTES % (AUTO) 12 % (12-44); MEAN CORPUSCULAR HEMOGLOBIN 31 pg (25-34); MEAN CORPUSCULAR HGB CONC 33 g/dL (32-36); MEAN CORPUSCULAR VOLUME 92 fL (80-99); MEAN PLATELET VOLUME 8.9 fL (9.0-12.2); MONOCYTES # (AUTO) 0.6 10^3/uL (0.0-1.0); MONOCYTES % (AUTO) 6 % (0-12); NEUTROPHILS % (AUTO) 80 % (42-75); PLATELET COUNT 307 10^3/uL (130-400); WHITE BLOOD COUNT 10.1 10^3/uL (4.3-11.0)
[2023-04-02 13:35] LABS: BILIRUBIN,URINE NEGATIVE (NEGATIVE); CLARITY,URINE CLEAR; COLOR,URINE YELLOW; GLUCOSE, URINE (UA) NEGATIVE (NEGATIVE); KETONES,URINE NEGATIVE (NEGATIVE); LEUKOCYTE ESTERASE ,URINE NEGATIVE (NEGATIVE); NITRITE,URINE NEGATIVE (NEGATIVE); PROTEIN,URINE NEGATIVE (NEGATIVE)
[2023-04-02 13:44] LABS: WBC,URINE RARE /HPF
[2023-04-02 13:45] LABS: CREATININE SERUM 0.82 MG/DL (0.60-1.30)
[2023-04-02 13:45] LABS: BACTERIA,URINE NEGATIVE /HPF; HYALINE CASTS, URINE RARE /LPF
== END ==
LOC: LAB 13:08
PROVIDERS: ATTEND Nurse Practitioner Family
DX: Z01.812 Encounter for preprocedural laboratory examination (principal); Z01.810 Encounter for preprocedural cardiovascular examination; N20.0 Calculus of kidney
CPT/HCPCS: 36415; 80048; 81000; 85025; 93005